=== PATIENT | male | born 1995 | race African-American/Black ===

== ENCOUNTER 2016-12-29 20:07 | Emergency (ER) | payer SELFPAY | END 2016-12-29 23:48 | disposition home or self-care (01) | LOC: CFTX 20:07 → CED 20:07 → CFTX 23:03 | DX: L30.9 Dermatitis, unspecified (principal); F17.210 Nicotine dependence, cigarettes, uncomplicated; Z91.013 Allergy to seafood | CPT/HCPCS: 99282 ==